=== PATIENT | male | born 2000 | race Caucasian/White ===

== ENCOUNTER 2023-12-06 16:39 | Emergency (ER) | payer OTHER, SELFPAY ==
--- NOTE | ~2023-12-06 | XR_ITS ---
EXAMINATION: XR finger 4th LT min 2V DATE: 12/06/2023 17:17 INDICATION: Swelling at the left fourth proximal interphalangeal joint post injury 3 weeks prior TECHNIQUE: Dorsal palmar, lateral and 2 oblique views of the left fourth digit were obtained COMPARISON: None FINDINGS: Soft tissue swelling about the left fourth proximal interphalangeal joint. There is subtle calcific d ensity along the ulnar side of the head of the proximal phalanx location most suspicious for small sm all minimally distracted avulsion fracture fragment of the proximal footplate of the ulnar collateral ligament. Bone alignment is otherwise normal. No other fractures identified. Joint spaces are normal . IMPRESSION: 1. Likely small minimally distracted flake-like avulsion fracture of the proximal footplate of the fo urth proximal interphalangeal joint ulnar collateral ligament. Reviewed, dictated and finalized at location A. IMPRESSION: 1. Likely small minimally distracted flake-like avulsion fracture of the proxim al footplate of the fourth proximal interphalangeal joint ulnar collateral liga ment.
[2023-12-06 16:50] VITALS: BP 130/79; PULSE 68; RESP 16; TEMP 36.9; O2SAT 98
--- NOTE | 2023-12-06 17:34 | ED.UPPEXIN ---
HPI - Extremity Injury (Upper) General Chief Complaint: Extremity Injury, Upper Stated Complaint: Finger Injury Source: patient Mode of arrival: ambulatory Limitations: no limitations History of Present Illness HPI narrative: 23-year-old male presented for complaint of pain and swelling to the left 4th finger for 3 weeks following injury. He states he may have hyperextended the finger while playing rugby. He has been wearing a metal finger splint. Has not taken anything for pain. endorses normal range of motion, but slower due to swelling. Pt also states he was able to perform lift of 400lbs yesterday without difficulty. Left hand dominant. Related Data Home Medications Medication Instructions Recorded Confirmed bupropion HCl 150 mg 24 hr tablet, 150 mg PO DAILY 12/06/23 12/06/23 extended release Allergies Allergy/AdvReac Type Severity Reaction Status Date / Time No Known Allergies Allergy Verified 12/06/23 17:07 Review of Systems Review of Systems: CONSTITUTIONAL: Denies body aches, fever, chills CARDIOVASCULAR: Denies chest pain, palpitations, or edema. RESPIRATORY: Denies cough or dyspnea. MUSCULOSKELETAL: Reports left 4th digit pain NEUROLOGIC: Denies headache, numbness, tingling, or weakness. PSYCH: Denies depression or anxiety. All systems reviewed & are unremarkable except as noted in HPI and below PMFSH Comments At time of signature, I have reviewed and agree with nursing past medical, surgical, social and family history unless otherwise noted. Please see nursing chart for further information. There is no relevant family history pertinent to the presenting complaint Exam Narrative: GENERAL: Well-appearing, well-nourished, and in no acute distress. CHEST: Speaks in full sentences. No respiratory distress. HEART: Regular rate and rhythm. Normal and equal peripheral pulses. EXTREMITIES: Left 4th digit has normal strength and sensation. Tender to PIP. Mild swelling to PIP. Range of motion is limited due to swelling, but able to perform full flexion/extension. No clubbing, bruising, cyanosis noted. Normal digital cascade with flexion of fingers, median, ulnar and radial nerve intact. Normal sensation of each side of finger. Can perform 'okay' sign, 'cross over finger test of index and middle fingers' and 'thumbs up' sign. No scissoring. pulse palpable and equal bilaterally, skin warm, dry, pink. Capillary refill less than 3 seconds. SKIN: Warm, dry NEURO: Alert and oriented x3. PSYCH: Normal mood and affect Course Course Emergency Course: Patient is aware of diagnosis, understands and agrees to treatment plan. Anticipatory guidance given. Patient agrees to follow-up as directed and is aware of reasons to seek care at the emergency department. Portions of this record may have been created with voice recognition software Level of Care: Express Care Visit Vital Signs Vital signs: Vital Signs Temperature 98.5 F 12/06/23 16:50 Pulse Rate 68 12/06/23 16:50 Respiratory Rate 16 12/06/23 16:50 Blood Pressure 130/79 12/06/23 16:50 Pulse Oximetry 98 12/06/23 16:50 Oxygen Delivery Room Air 12/06/23 16:50 Temperature 98.5 F 12/06/23 16:50 Pulse Rate 68 12/06/23 16:50 Respiratory Rate 16 12/06/23 16:50 Blood Pressure 130/79 12/06/23 16:50 Pulse Oximetry 98 12/06/23 16:50 Oxygen Delivery Room Air 12/06/23 16:50 Reviewed MDM - Extremity Injury (Upper) MDM Narrative Medical decision making narrative: Results of the x-ray reviewed with patient. Patient will continue to wear the metal finger splint from home, he will take it off more often to perform ROM exercises.Discussed physical exam findings. Advised supportive measures and signs/symptoms to go to the ER. Pt is appropriate for outpt treatment and f/u. Differential Diagnosis Differential diagnosis: Likely finger sprain, dislocation of finger and other (finger fracture) Imaging Data
== END 2023-12-06 17:45 | disposition home or self-care (01) ==
PROVIDERS: Emergency Provider Nurse Practitioner Family; PCP Internal Medicine Infectious Disease
DX: S62.615A Displaced fracture of proximal phalanx of left ring finger, initial encounter for closed fracture (principal); X50.9XXA Other and unspecified overexertion or strenuous movements or postures, initial encounter; Y93.63 Activity, rugby; F41.9 Anxiety disorder, unspecified; F32.A Depression, unspecified
CPT/HCPCS: 73140; 99213; G0463

== ENCOUNTER 2024-05-13 16:51 | Emergency (ER) | payer OTHER, SELFPAY ==
--- NOTE | ~2024-05-13 | XR_ITS ---
EXAM: XR foot LT min 3V DATE: 05/13/2024 17:31 HISTORY: pain . COMPARISON: None available. FINDINGS: Normal mineralization. No fracture or dislocation. No lytic or blastic lesion. Joint space s are maintained. Achilles enthesopathy No erosion or periosteal change. Soft tissues within normal l imits. IMPRESSION: No acute osseous finding in the left foot. Reviewed, dictated and finalized at location K.
[2024-05-13 17:08] VITALS: BP 133/82; PULSE 95; RESP 16; TEMP 36.7; O2SAT 100
--- NOTE | 2024-05-13 17:25 | ED.LOWEXIN ---
HPI - Extremity Injury (Lower) General Chief Complaint: Extremity Injury, Lower Stated Complaint: Left Foot Injury Time Seen by Provider: 05/13/24 17:25 Source: patient Mode of arrival: ambulatory Limitations: no limitations History of Present Illness HPI Narrative: 23-year-old male presented for complaint of left foot pain for about 2 months. denies known injury, but states he is on his feet often. He states he believes he has a 1st metatarsal stress fracture. Taking tylenol and ibuprofen. denies swelling, deformity, bruising, redness, warmth, numbness or tingling. Related Data Home Medications Medication Instructions Recorded Confirmed bupropion HCl 150 mg 24 hr tablet, 150 mg PO DAILY 12/06/23 05/13/24 extended release bupropion HCl 75 mg tablet 75 mg PO DAILY 05/13/24 05/13/24 cetirizine 10 mg tablet 10 mg PO DAILY PRN Allergy Symptoms 05/13/24 05/13/24 Allergies Allergy/AdvReac Type Severity Reaction Status Date / Time No Known Allergies Allergy Verified 12/06/23 17:07 Review of Systems Review of Systems: CONSTITUTIONAL: Denies body aches, fever, chills EYES: Denies visual changes CARDIOVASCULAR: Denies chest pain, palpitations, or edema. RESPIRATORY: Denies cough or dyspnea. GASTROINTESTINAL: Denies abdominal pain, nausea, vomiting, or diarrhea. SKIN: Denies rash, itching, or wounds. MUSCULOSKELETAL: reports left foot pain NEUROLOGIC: Denies headache, numbness, tingling, or weakness. All systems reviewed & are unremarkable except as noted in HPI and below PMFSH Comments At time of signature, I have reviewed and agree with nursing past medical, surgical, social and family history unless otherwise noted. Please see nursing chart for further information. There is no relevant family history pertinent to the presenting complaint Exam Narrative: GENERAL: Well-appearing CHEST: Speaks in full sentences. No respiratory distress. HEART: Regular rate and rhythm. Normal and equal peripheral pulses. EXTREMITIES: left foot has normal strength and sensation, normal range of motion. No swelling, erythema, or ecchymosis, No point tenderness. No open wounds, or obvious deformity; alignment normal, pulse palpable and equal bilaterally, skin warm, dry, pink. Capillary refill less than 3 seconds. SKIN: Warm, dry, no rash. NEURO: Alert and oriented x3. PSYCH: Normal mood and affect Course Course Emergency Course: Patient is aware of diagnosis, understands and agrees to treatment plan. Anticipatory guidance given. Patient agrees to follow-up as directed and is aware of reasons to seek care at the emergency department. Portions of this record may have been created with voice recognition software Level of Care: Express Care Visit Vital Signs Vital signs: Vital Signs Temperature 98.1 F 05/13/24 17:08 Pulse Rate 95 05/13/24 17:08 Respiratory Rate 16 05/13/24 17:08 Blood Pressure 133/82 05/13/24 17:08 Pulse Oximetry 100 05/13/24 17:08 Oxygen Delivery Room Air 05/13/24 17:08 Temperature 98.1 F 05/13/24 17:08 Pulse Rate 95 05/13/24 17:08 Respiratory Rate 16 05/13/24 17:08 Blood Pressure 133/82 05/13/24 17:08 Pulse Oximetry 100 05/13/24 17:08 Oxygen Delivery Room Air 05/13/24 17:08 Reviewed MDM - Extremity Injury (Lower) MDM Narrative Medical decision making narrative: Discussed physical exam findings and x-ray results. Advised supportive measures and signs/symptoms to go to the ER. Pt is appropriate for outpt treatment and f/u. Differential Diagnosis Differential diagnosis: Likely other (Plantar fasciitis, heel spur, foot strain/sprain, metatarsal fracture, metatarsalgia, vázquez's neuroma) Imaging Data Radiologist's impression: Patient: Kingston Lyman : 2000 MR#: [id number] Age: 23 Acct:[id number] Loc: [facility] ADM Date: 05/13/24Attending Dr: Ordering Physician: Geno Boudreaux APRN Date of Service: 05/13/24 Proce
== END 2024-05-13 18:12 | disposition home or self-care (01) ==
PROVIDERS: Emergency Provider Nurse Practitioner Family; PCP Internal Medicine Infectious Disease
DX: M79.672 Pain in left foot (principal)
CPT/HCPCS: 73630; 99213; G0463